=== PATIENT | female | born 1990 | race Hispanic/Latino ===

== ENCOUNTER 2021-05-30 19:49 | Emergency (ER) | payer SELFPAY ==
[~2021-05-30] VITALS: Ht 157.5 cm; Wt 56.7 kg
[2021-05-30] MEDS ORDERED: CEFDINIR300 MG PO (20:26)
[2021-05-30] MEDS ORDERED: IBUPROFEN IB200 MG PO (20:26)
== END 2021-05-30 20:33 | disposition home or self-care (01) ==
LOC: FSED 20:00
DX: R10.2 Pelvic and perineal pain (principal); R30.0 Dysuria; N30.91 Cystitis, unspecified with hematuria
CPT/HCPCS: 81003; 81025; 99282